=== PATIENT | male | born 1990 | race Caucasian/White ===

== ENCOUNTER 2020-04-29 16:04 | Emergency (ER) | payer OTHER, SELFPAY ==
[~2020-04-29] VITALS: Ht 177.8 cm; Wt 101.3 kg
[2020-04-29 20:05] VITALS: BP 142/93
== END 2020-04-29 20:06 | disposition home or self-care (01) ==
LOC: M ED 16:04
DX: Z00.00 Encounter for general adult medical examination without abnormal findings (principal)

== ENCOUNTER 2022-02-23 09:36 | Inpatient (IN) | payer MEDICAID, OTHER, SELFPAY ==
[~2022-02-23] VITALS: Ht 177.8 cm; Wt 100.0 kg
[2022-02-23 11:09] LABS: HEMATOCRIT 48.9 % (42.0-52.0); HEMOGLOBIN 15.8 g/dl (13.5-17.5); MEAN CORPUSCULAR HEMOGLOBIN 27.6 pg (27.0-33.0); MEAN CORPUSCULAR HGB CONC 32.3 g/dl (32.0-36.5); MEAN CORPUSCULAR VOLUME 85.3 fl (80.0-96.0); PLATELET COUNT, AUTOMATED 322 10^3/uL (150-450); RED BLOOD COUNT 5.73 10^6/uL (4.30-6.10)
[2022-02-23 11:33] LABS: CHLORIDE LEVEL 101 MMOL/L (98-107); POTASSIUM SERUM 4.1 MMOL/L (3.5-5.1); SODIUM LEVEL 139 MMOL/L (136-145)
[2022-02-23 11:35] LABS: ALBUMIN 4.3 G/DL (3.2-5.2); CARBON DIOXIDE LEVEL 24 MMOL/L (20-31)
[2022-02-23 11:39] LABS: BLOOD UREA NITROGEN 23 MG/DL (9-23); GLUCOSE, FASTING 104 MG/DL (60-100)
[2022-02-23 11:40] LABS: ALKALINE PHOSPHATASE 105 U/L (46-116); CALCIUM LEVEL 9.3 MG/DL (8.5-10.1); ETHYL ALCOHOL (ETHANOL) 0.004 % (0.000-0.010)
[2022-02-23 11:41] LABS: BILIRUBIN,DIRECT 0.1 MG/DL (<0.4); BILIRUBIN,TOTAL 0.5 MG/DL (0.3-1.2); GLOMERULAR FILTRATION RATE > 60.0 (>60); SALICYLATE LEVEL < 3.0 MG/DL (<30); TOTAL PROTEIN 7.9 G/DL (5.7-8.2)
[2022-02-23 11:42] LABS: ACETAMINOPHEN LEVEL < 2.0 UG/ML (10.0-20.0); ALT/SGPT 195 U/L (7.0-40); AST/SGOT 116 U/L (<34)
[2022-02-23 11:43] LABS: THYROID STIMULATING HORMONE 0.896 uIU/ML (0.55-4.78)
[2022-02-23 11:44] LABS: RSV AMPLIFICATION NEGATIVE (NEGATIVE)
[2022-02-23] MEDS: diphenhydrAMINE 50MG/ML VIAL IM ONE ×2 (12:43→14:17)
[2022-02-23] MEDS: HALOPERIDOL 5MG/ML VIAL (J1630 PER 1) IM ONE ×2 (12:43→14:18)
[2022-02-23] MEDS: MIDAZOLAM INJ 2MG/2ML VIAL (J2250 PER 1MG) IM ONE ×2 (12:44→14:18)
[2022-02-23] MEDS ORDERED: LORazepam 1 MG TAB PO STA (12:48)
[2022-02-23] MEDS ORDERED: OLANZapine 10 MG TAB PO ONE (12:50)
[2022-02-23] MEDS ORDERED: HOME MED LIST COMPLETE! XX SCH (14:55)
[2022-02-23 19:33] LABS: AMPHETAMINES LEVEL URINE NEGATIVE (NEGATIVE); BARBITURATES URINE NEGATIVE (NEGATIVE); BENZODIAZEPINES URINE NEGATIVE (NEGATIVE); CANNABINOIDS URINE POSITIVE (NEGATIVE); COCAINE METABOLITE URINE NEGATIVE (NEGATIVE); METHADONE URINE NEGATIVE (NEGATIVE); OPIATES URINE NEGATIVE (NEGATIVE); PHENCYCLIDINE URINE NEGATIVE (NEGATIVE)
[2022-02-24] MEDS: NICOTINE 21MG/24HR 1 EA TRANSDERMAL TD SCH (09:00)
[2022-02-24] MEDS ORDERED: MAALOX 30 ML SUSP *UDC PO PRN (11:55)
[2022-02-24] MEDS ORDERED: MOM 30ML SUSPENSION UDC PO PRN (11:55)
[2022-02-24] MEDS ORDERED: OLANZapine ORAL DISINTEGRATING TAB 5MG PO PRN (11:55)
[2022-02-24] MEDS ORDERED: IBUPROFEN 400MG TAB PO PRN (11:55)
[2022-02-24 14:41] VITALS: BP 180/103
[2022-02-24] MEDS ORDERED: LORazepam 2 MG TAB PO ONE (15:50)
[2022-02-25 06:22] VITALS: BP 123/77
[2022-02-25] MEDS: NICOTINE 21MG/24HR 1 EA TRANSDERMAL TD SCH (09:00)
[2022-02-25] MEDS ORDERED: NICOTINE 21MG/24HR 1 EA TRANSDERMAL TD SCH (09:00)
[2022-02-25] MEDS ORDERED: LORazepam 2 MG TAB PO PRN (11:15)
[2022-02-25] MEDS: THIAMINE 100 MG TAB PO SCH (14:14)
[2022-02-25] MEDS: MULTIVITAMINS/MINERALS THERAP 1 TAB PO SCH (14:14)
[2022-02-25] MEDS: FOLIC ACID 1MG TAB PO SCH (14:14)
[2022-02-25 15:10] LABS: HEPATITIS B SURFACE ANTIGEN NEGATIVE (NEGATIVE)
[2022-02-25 15:30] LABS: HEPATITIS B CORE ANTIBODY IGM NEGATIVE (NEGATIVE)
[2022-02-26 06:29] VITALS: BP 155/89
[2022-02-26] MEDS: MULTIVITAMINS/MINERALS THERAP 1 TAB PO SCH (08:45)
[2022-02-26] MEDS: THIAMINE 100 MG TAB PO SCH (08:45)
[2022-02-26] MEDS: FOLIC ACID 1MG TAB PO SCH (08:45)
[2022-02-26] MEDS: NICOTINE 21MG/24HR 1 EA TRANSDERMAL TD SCH (08:45)
[2022-02-26] MEDS: OLANZapine 2.5MG TABLET PO SCH ×2 (09:00→21:00)
[2022-02-26 15:00] VITALS: BP 152/100
[2022-02-26 18:06] LABS: ALBUMIN 4.6 G/DL (3.2-5.2); BILIRUBIN,DIRECT 0.2 MG/DL (<0.4); BILIRUBIN,TOTAL 0.5 MG/DL (0.3-1.2); CHOLESTEROL RISK RATIO 6.31 (<5); HDL CHOLESTEROL 44.8 MG/DL (>40); LDL CHOLESTEROL 208.6 MG/DL (<100); TOTAL PROTEIN 8.3 G/DL (5.7-8.2)
[2022-02-26 18:17] VITALS: BP 152/100
[2022-02-27 06:33] VITALS: BP 148/65
[2022-02-27 06:34] VITALS: BP 148/65
[2022-02-27] MEDS: OLANZapine 2.5MG TABLET PO SCH ×2 (09:00→21:00)
[2022-02-27] MEDS: MULTIVITAMINS/MINERALS THERAP 1 TAB PO SCH (09:36)
[2022-02-27] MEDS: THIAMINE 100 MG TAB PO SCH (09:37)
[2022-02-27] MEDS: FOLIC ACID 1MG TAB PO SCH (09:37)
[2022-02-27 18:12] VITALS: BP 157/81
[2022-02-28 06:00] VITALS: BP 131/70
[2022-02-28] MEDS: MULTIVITAMINS/MINERALS THERAP 1 TAB PO SCH (08:56)
[2022-02-28] MEDS: FOLIC ACID 1MG TAB PO SCH (08:56)
[2022-02-28] MEDS: THIAMINE 100 MG TAB PO SCH (08:56)
[2022-02-28] MEDS: OLANZapine 2.5MG TABLET PO SCH ×2 (08:57→21:00)
[2022-02-28 18:19] VITALS: BP 135/78
[2022-03-01 06:59] VITALS: BP 122/85
[2022-03-01] MEDS: FOLIC ACID 1MG TAB PO SCH (08:22)
[2022-03-01] MEDS: MULTIVITAMINS/MINERALS THERAP 1 TAB PO SCH (08:22)
[2022-03-01] MEDS: OLANZapine 2.5MG TABLET PO SCH ×2 (08:22→20:52)
[2022-03-01] MEDS: THIAMINE 100 MG TAB PO SCH (08:22)
[2022-03-01 18:00] VITALS: BP 134/70
[2022-03-02] MEDS: OLANZapine 2.5MG TABLET PO SCH ×2 (08:05→21:00)
[2022-03-02] MEDS: MULTIVITAMINS/MINERALS THERAP 1 TAB PO SCH (08:06)
[2022-03-02] MEDS: THIAMINE 100 MG TAB PO SCH (08:06)
[2022-03-02] MEDS: FOLIC ACID 1MG TAB PO SCH (08:06)
[2022-03-02 16:22] VITALS: BP 143/79
[2022-03-03 06:38] VITALS: BP 148/87
[2022-03-03] MEDS: OLANZapine 2.5MG TABLET PO SCH ×2 (07:46→21:00)
[2022-03-03] MEDS: MULTIVITAMINS/MINERALS THERAP 1 TAB PO SCH (07:47)
[2022-03-03] MEDS: THIAMINE 100 MG TAB PO SCH (07:47)
[2022-03-03] MEDS: FOLIC ACID 1MG TAB PO SCH (07:47)
[2022-03-03 16:23] VITALS: BP 143/86
[2022-03-04 06:24] VITALS: BP 135/72
[2022-03-04] MEDS: OLANZapine 2.5MG TABLET PO SCH (08:16)
[2022-03-04] MEDS: FOLIC ACID 1MG TAB PO SCH (08:17)
[2022-03-04] MEDS: THIAMINE 100 MG TAB PO SCH (08:17)
[2022-03-04] MEDS: MULTIVITAMINS/MINERALS THERAP 1 TAB PO SCH (08:17)
== END 2022-03-04 11:49 | disposition home or self-care (01) | DRG 751 ==
LOC: M ED 09:36 → M ED INP 02-24 11:52 → M PSY 02-24 14:32
PROVIDERS: ADMIT Student in an Organized Health Care Education/Training Program; ATTEND Student in an Organized Health Care Education/Training Program
DX: F29 Unspecified psychosis not due to a substance or known physiological condition (principal); F10.131 Alcohol abuse with withdrawal delirium; K76.0 Fatty (change of) liver, not elsewhere classified; F19.150 Other psychoactive substance abuse with psychoactive substance-induced psychotic disorder with delusions; R74.01 Elevation of levels of liver transaminase levels; Z62.810 Personal history of physical and sexual abuse in childhood; Z62.811 Personal history of psychological abuse in childhood; Z87.891 Personal history of nicotine dependence